=== PATIENT | male | born 1990 | race Caucasian/White ===

== ENCOUNTER 2021-06-04 15:14 | Inpatient (IN) | payer MEDICAID, SELFPAY ==
[2021-06-04] VITALS (20 sets, daily range): BP systolic 126–142; BP diastolic 72–101; PULSE 82–115; RESP 18–29; TEMP 37.8; O2SAT 97–99
[2021-06-04] MEDS: INSULIN REGULAR IN 0.9 % NACL 100 UNIT/100 ML BAG IV (15:05)
[2021-06-04] MEDS: POTASSIUM CHLORIDE/D5-0.45NACL 1,000 ML 150 MEQ IV ×2 (15:10→20:36)
[2021-06-04] MEDS: Normal Saline Flush 10 ML SYR (15:10)
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
[2021-06-04 16:06] LABS: Abs Immature Grans 0.02 10^3/uL (0.0-0.06); Absolute Basophil Count 0.03 10^3/uL (0.0-0.2); Absolute Eosinophil Count 0.08 10^3/uL (0.0-0.7); Absolute Lymphocyte Count 0.84 10^3/uL (1.2-3.4); Absolute Monocyte Count 1.34 10^3/uL (0.1-0.8); Absolute Neutrophil Count 4.19 10^3/uL (1.2-6.7); Basophils % 0.5; Eosinophils % 1.2; HCT 40.3 % (40.0-50.0); HGB 13.6 g/dL (13.5-17.5); Immature Grans % 0.3; Lymphocytes % 12.9; MCH 31.8 pg (27.0-33.0); MCHC 33.7 % (32.0-36.0); MCV 94.2 fL (80-95); MPV 9.9 fL (8.0-11.0); Monocytes % 20.6; Neutrophils % 64.5; Nucleated RBC 0 %; Platelet Count 173 10^3/uL (130-400); RBC 4.28 10^6/uL (4.36-5.78); RDW 11.6 % (11.8-14.1); RDW-SD 40.1 fL
[2021-06-04 16:10] LABS: Lactate 1.1 mmol/L (0.6-1.4)
[2021-06-04 16:23] LABS: ALT 101 U/L (16-63); AST 74 U/L (15-37); Albumin 3.9 g/dL (3.4-5.0); Alkaline Phosphatase 68 U/L (46-116); Anion Gap 15.6 mmol/L (3-11); BUN 12 mg/dL (7-18); Bilirubin, Total 1.1 mg/dL (0.2-1.0); C-Reactive Protein 0.09 mg/dL (0.0-0.3); CO2 16.4 mmol/L (21.0-32.0); CREATININE 1.1 mg/dL (0.70-1.30); Calcium 8.4 mg/dL (8.5-10.1); Chloride 96 mmol/L (98-107); Glucose 163 mg/dL (74-106); Potassium 3.6 mmol/L (3.5-5.1); Sodium 128 mmol/L (136-145); Total Protein 7.1 g/dL (6.4-8.2)
[2021-06-04 16:36] LABS: Magnesium 2.2 mg/dL (1.8-2.4); PHOSPHORUS < 2.0 mg/dL (2.6-4.7)
[2021-06-04 17:11] LABS: Procalcitonin 0.1 ng/mL
[2021-06-04] MEDS: Enoxaparin 40 MG/0.4 ML SYR SC (17:20)
[2021-06-04] MEDS: THIAMINE 100 MG in Normal Saline 100 ML 200 MG IVPB (19:27)
[2021-06-04] MEDS: Insulin Glargine 300 UNITS/3 ML PEN 25 UNITS SC (19:28)
[2021-06-04 21:02] LABS: Anion Gap 12.3 mmol/L (3-11); BUN 11 mg/dL (7-18); CO2 20.7 mmol/L (21.0-32.0); Calcium 8.5 mg/dL (8.5-10.1); Chloride 103 mmol/L (98-107); Glucose 196 mg/dL (74-106); Potassium 3.6 mmol/L (3.5-5.1); Sodium 136 mmol/L (136-145)
[2021-06-05] VITALS (14 sets, daily range): BP systolic 137–155; BP diastolic 98–108; PULSE 68–118; RESP 18–29; TEMP 37–37.4; O2SAT 94–98
[2021-06-05] MEDS: Dextrose 50%-Water 25 GM/50 ML SYR (00:41)
[2021-06-05 00:49] LABS: Anion Gap 12.2 mmol/L (3-11); BUN 9 mg/dL (7-18); CO2 23.8 mmol/L (21.0-32.0); CREATININE 0.8 mg/dL (0.70-1.30); Calcium 8.8 mg/dL (8.5-10.1); Chloride 103 mmol/L (98-107); Potassium 3.1 mmol/L (3.5-5.1); Sodium 139 mmol/L (136-145)
[2021-06-05 00:51] LABS: Glucose 65 mg/dL (74-106)
[2021-06-05] MEDS: POTASSIUM CHLORIDE 20 MEQ, POTASSIUM CHLORIDE 10 MEQ 30 MEQ PO (01:00)
[2021-06-05] MEDS: POTASSIUM CHLORIDE 20 MEQ/100 ML BAG 50 MEQ IVPB ×2 (01:51→05:10)
[2021-06-05] MEDS: Normal Saline 500 ML 50 ML IV (02:25)
[2021-06-05] MEDS: Potassium Chloride 20 MEQ TABCR 40 MEQ PO (02:59)
[2021-06-05 05:55] LABS: ALT 103 U/L (16-63); AST 132 U/L (15-37); Albumin 3.7 g/dL (3.4-5.0); Alkaline Phosphatase 66 U/L (46-116); Anion Gap 9.9 mmol/L (3-11); BUN 7 mg/dL (7-18); Bilirubin, Total 1.1 mg/dL (0.2-1.0); CO2 24.1 mmol/L (21.0-32.0); CREATININE 0.8 mg/dL (0.70-1.30); Calcium 8.4 mg/dL (8.5-10.1); Chloride 105 mmol/L (98-107); Glucose 90 mg/dL (74-106); PHOSPHORUS < 2.0 mg/dL (2.6-4.7); Potassium 3.7 mmol/L (3.5-5.1); Sodium 139 mmol/L (136-145); Total Protein 6.7 g/dL (6.4-8.2)
[2021-06-05] MEDS: POTASSIUM CHLORIDE/D5-0.45NACL 1,000 ML 150 MEQ IV (05:57)
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
[2021-06-05] MEDS: Multivitamin TAB 1 TAB PO (09:00)
[2021-06-05] MEDS: Thiamine 100 MG TAB PO (09:00)
[2021-06-05] MEDS: Normal Saline Flush 10 ML SYR IVP (09:01)
[2021-06-05] MEDS: Insulin Aspart 300 UNITS/3 ML PEN SC ×5 (09:05→17:06)
[2021-06-05 14:09] LABS: Bilirubin Negative (Negative); Blood Negative (Negative); Clarity Clear (Clear); Glucose 500 mg/dL (Negative); Ketones 40 mg/dL (Negative); Leukocyte Esterase Negative (Negative); Nitrite Negative (Negative); Urobilinogen 0.2 EU/dL (Up TO 0.2); pH 6.5 (5-8)
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
--- NOTE | 2021-06-05 15:33 | PDOC.CMDIS ---
- If Service Date Differs Date of service: 06/05/21 Time of Service: 15:33 LACE Index Scoring Tool - Questions: Length of Stay (in days): 1 Acuity (Admit via E.D.?): No Comorbidities: Diabetes w/o Complication E.D. Visits: 0 - Answers: Total Score: 2 Risk of Readmission: Low Risk Care Management Discharge Reason for Hospitalization: DKA Discharge Plan: Daryn will be discharged home with no new services. He will follow up with his community providers and transport with friends or family. Dr. Almanzar ordered a Social 2 Stepe 2 CGM with sensors for Daryn and the order was sent to his pharmacy which is [facility]. CM learned from the pharmacy that a prior authorization is required from Medicaid. This was completed and faxed and will be reviewed on Monday. Daryn was advised to vcall the pharmacy to follow up on Monday. He will also follow up with Endocrinology at [facility]. Patient/Family Education Needs: Review discharge instructions, medications, limitations, follow up plan and discuss Ask Me Three
[2021-06-05 17:17] LABS: Bilirubin Negative (Negative); Blood Negative (Negative); Clarity Clear (Clear); Glucose >=1000 mg/dL (Negative); Ketones 40 mg/dL (Negative); Leukocyte Esterase Negative (Negative); Nitrite Negative (Negative); Urobilinogen 0.2 EU/dL (Up TO 0.2)
--- NOTE | 2021-06-05 18:16 | NUR.NOTE ---
Nursing Note: Pt's own blood glucose monitor result is 229/ Results for pt's blood glucose level done with ICU glucometer is 236. Pt reassured that resukts were similar. Pt reminded to wash his hand ( thinks he had some left over food on his hand) before completing blood glucose test.
== END 2021-06-05 17:45 | disposition home or self-care (01) | DRG 638 ==
PROVIDERS: Admitting Provider Internal Medicine; PCP Internal Medicine; Visit Provider Internal Medicine
DX: E10.10 Type 1 diabetes mellitus with ketoacidosis without coma (principal); N17.9 Acute kidney failure, unspecified; E86.0 Dehydration; Z20.822 Contact with and (suspected) exposure to COVID-19; F10.10 Alcohol abuse, uncomplicated; Z98.1 Arthrodesis status; R74.01 Elevation of levels of liver transaminase levels; E87.6 Hypokalemia; E83.39 Other disorders of phosphorus metabolism
CPT/HCPCS: 36415; 80048; 80053; 84145; 86704; 86709; 86803; 87340; J1650; 81003; 83605; 83735; 84100; 85025; 86140; 99222; 99239; J3480; J3490

== ENCOUNTER 2023-01-04 11:54 | Emergency (ER) | payer MEDICAID, SELFPAY ==
[2023-01-04 11:59] VITALS: BP 121/91; PULSE 82; RESP 20; TEMP 37; O2SAT 99
--- OUTSIDE RECORDS SUMMARY | 2023-01-04 12:06 | XMS_ITS | Continuity of Care Document ---
Author Name Unknown Organization [facility] Address [address] [place] [address] Care Team Providers Care Car Salesperson Name Role Phone Renetta Baptiste Primary Care Physician Encounter [facility] Date(s): 01/01/23 - 01/01/[address] [phone] Encounter Diagnosis Fracture of ulnar styloid(Discharge Diagnosis) - 01/01/23 Discharge Disposition: Home or Self Care Attending Physician: Nino Ruggiero MD Admitting Physician: Nino Ruggiero MD Allergies, Adverse Reactions, Alerts Substance Reaction Severity Status gadolinium containing compounds 1 Moderat e Active 1Hives, Itching, Sneezing Functional Status 01/01/23 Recent Travel History No recent travel Other exposure to Infectious Disease Non e Medications atorvastatin 20 mg oral tablet 20 mg = 1 tab, Oral, Daily Start Date: 03/15/22 Status: Ordered cyclobenzaprine 10 mg oral tablet 10 mg = 1 tab, Oral, TID, PRN as needed for muscle spasm, # 15 tab, 0 Refill(s), Pharmacy: [id number], 173, cm, 06/18/22 12:23:00 EST, Height/Length Dosing, 74.84, kg, 06/18/22 12:23:00 EST, Weight Dosing Start Date: 06/18/22 Stop Date: 06/23/22 Status: Ordered FREESTYLE DOLORES 2 READER MIS FREESTYLE DOLORES 2 READER MIS, See Instructions, Use for glucose monitoring as directed Start Date: 03/15/22 Status: Ordered FREESTYLE DOLORES 2 SENSOR KIT FREESTYLE DOLORES 2 SENSOR KIT, See Instructions, Use for glucose checks with meals and at bedtime and as needed and directed Start Date: 03/15/22 Status: Ordered FREESTYLE PRECISION ROLANDO MIS FREESTYLE PRECISION ROLANDO MIS, See Instructions, Use one new test strip for each glucose testing withmeals and at bedtime as directed for Calibration Start Date: 03/15/22 Status: Ordered ibuprofen 600 mg oral tablet 600 mg = 1 tab, Oral, every 8 hr, # 30 tab, 0 Refill(s), Pharmacy: [id number], 173, cm, 06/18/22 12:23:00 EST, Height/Length Dosing, 74.84, kg, 06/18/22 12:23:00 EST, Weight Dosing Start Date: 06/18/22 Status: Ordered Lantus Solostar Pen 100 units/mL subcutaneous solution 30 units =, Subcutaneous, Daily Start Date: 03/15/22 Status: Ordered lisinopril 10 mg oral tablet 10 mg = 1 tab, Oral, Daily Start Date: 03/15/22 Status: Ordered NovoLOG FlexPen 100 units/mL injectable solution See Instructions, Inject up to 20 units subcutaneously four times daily - Max of 20 units per day Start Date: 03/15/22 Status: Ordered ONETOUCH ULTRA BLUE TEST STP ONETOUCH ULTRA BLUE TEST STP, See Instructions, Use 1 new test strip to check blood glucose 4 timesdaily Start Date: 03/15/22 Status: Ordered Virt-Phos 250 Neutral oral tablet 2 tab, Oral, QID Start Date: 03/15/22 Status: Ordered Vitamin B1 100 mg oral tablet 100 mg = 1 tab, Oral, Daily Start Date: 03/15/22 Status: Ordered Problem List Condition Confirmation Course Effective Dates Status Health [facility] Informant Pain of right wrist Confirmed Active Vital Signs Most recent to oldest [Reference Range]: 1 Temperature Temporal Artery [36-38 Deg C ] 36.3 Deg C (01/01/23 6:52 AM) Peripheral Pulse Rate [60-100 bpm] 109 b pm *HI* (01/01/23 6:52 AM) Blood Pressure [90-140/60-90 mmHg] 131/9 2mmHg (01/01/23 6:52 AM) Weight Dosing 74.80 kg (01/01/23 6:58 AM) Weight Estimated 74.80 kg (01/01/23 6:52 AM) Height/Length Dosing 173.000 cm (01/01/23 6:58 AM) Height/Length Estimated 173.000 cm (01/01/23 6:52 AM) Social History Social History Type Response Tobacco Former tobacco user Tobacco Use:. Sex Male Hospital Discharge Instructions Patient Education 01/01/2023 07:42:29 Ulnar Fracture Ulnar Fracture An ulnar fracture is a break in the ulna bone. The ulna is a bone in the forearm, on the same side as the little finger. The forearm is the part of the arm that is between the elbow and the wrist. Itis made up of two bones: the radius and the ulna. You can feel the ulna on the outside of the wristand at the point of the elbow. An ulnar fracture can happen near the wrist, near the elbow, or in the middle of the forearm. In many cases of ulnar fracture, the radius is also fractured. What are the causes? This condition is usually caused by a direct hit or stress to the forearm. This may result from: ??? An accident, such as a car or bike accident. ??? Falling with the arm outstretched. What increases the risk? You may be more likely to fracture your ulna if you: ??? Play contact sports. ??? Have a condition that causes your bones to become thin and brittle (osteoporosis). What are the signs or symptoms? Signs and symptoms may include: ??? Pain immediately after the injury. ??? An abnormal bend or bump in the arm (deformity). ??? Swelling. ??? Bruising. ??? Numbness or weakness in your hand. ??? Inability to turn your hand from side to side. How is this diagnosed? This condition may be diagnosed based on: ??? Your symptoms and medical history. ??? A physical exam. ??? An X-ray. How is this treated? Treatment depends on how severe your fracture is, where it is, and how the pieces of the broken bone line up with each other (alignment). ??? The first step in treatment may be for you to wear a temporary splint for a few days. After theswelling goes down, you may get a cast, get a different type of splint, or have surgery. ??? If your broken bone is in good alignment, you will need to wear a splint or cast for several weeks. ??? If your broken bone is not aligned (is displaced), your health care provider will need to alignthe bone pieces. After alignment, you will need to wear a splint or cast for up to 6 weeks. To align your broken bone, your health care provider may: ??? Move the bones back into position without surgery (closed reduction). ??? Perform surgery to align the fracture and fix the bone pieces into place with metal screws, plates, or wires (open reduction and internal fixation, ORIF). ??? Perform surgery to align the fracture and fix the bone pieces into place with pins that are attached to a stabilizing bar outside your skin (external fixation). Treatment may also include: ??? Having your cast changed after 2???3 weeks. ??? Physical therapy. ??? Follow-up visits and X-rays to make sure you are healing. Follow these instructions at home: If you have a splint: ??? Wear it as told by your health care provider. Remove it only as told by your health care provider. ??? Loosen the splint if your fingers tingle, become numb, or turn cold and blue. ??? Keep the splint clean and dry. If you have a cast: ??? Do not stick anything inside the cast to scratch your skin. Doing that increases your risk for infection. ??? Check the skin around the cast every day. Tell your health care provider about any concerns. ??? You may put lotion on dry skin around the edges of the cast. Do not put lotion on the skin underneath the cast. ??? Keep the cast clean and dry. Bathing ??? Do not take baths, swim, or use a hot tub until your health care provider approves. Ask your health care provider if you may take showers. You may only be allowed to take sponge baths. ??? If your splint or cast is not waterproof: ??? Do not let it get wet. ??? Cover it with a watertight covering when you take a bath or a shower. Activity ??? Do not lift anything with your injured arm. ??? Do not use the injured arm to support your body weight until your health care provider says that you can. ??? Ask your health care provider what activities are safe for you during recovery, and ask what activities you need to avoid. Managing pain, stiffness, and swelling ??? If directed, put ice on painful areas: ??? If you have a removable splint, remove it as told by your health care provider. ??? Put ice in a plastic bag. ??? Place a towel between your skin and the bag, or between your cast and the bag. ??? Leave the ice on for 20 minutes, 2???3 times a day. ??? Move your fingers often to avoid stiffness and to lessen swelling. ??? Raise (elevate) the injured area above the level of your heart while you are sitting or lying down. General instructions ??? Do not put pressure on any part of the cast or splint until it is fully hardened. This may takeseveral hours. ??? Take tkix-ujx-lxdoeax and prescription medicines only as told by your health care provider. ??? Do not drive until your health care provider approves. You should not drive or use heavy machinery while taking prescription pain medicine. ??? Do not use any products that contain nicotine or tobacco, such as cigarettes and e-cigarettes. These can delay bone healing. If you need help quitting, ask your health care provider. ??? Keep all follow-up visits as told by your health care provider. This is important. Contact a health care provider if you have: ??? Pain that does not get better with medicine. ??? Swelling that gets worse. ??? A bad smell coming from your cast. Get help right away if: ??? You cannot move your fingers. ??? You have severe pain. ??? Your fingers or your hand: ??? Become numb, cold, or pale. ??? Turn a bluish color. Summary ??? An ulnar fracture is a break in the ulna bone, which is the bone in your forearm that is on thesame side as your little finger. ??? You may need to wear a splint or a cast for at least several weeks. Sometimes surgery is needed. ??? Keep all follow-up visits as told by your health care provider. This information is not intended to replace advice given to you by your health care provider. Make sure you discuss any questions you have with your health care provider. Document Revised: 08/11/2021 Document Reviewed: 08/11/2021 [employer] Patient Education ?? 2021 [employer]. 01/01/2023 07:42:25 Cast or Splint Care, Adult Cast or Splint Care, Adult Casts and splints are supports that are worn to protect broken bones and other injuries. A cast or splint may hold a bone still and in the correct position while it heals. Casts and splints may also help to ease pain, swelling, and muscle spasms. A cast is a hardened support that is usually made of fiberglass or plaster. It is custom-fit to thebody and offers more protection than a splint. Most casts cannot be taken off and put back on. A splint is a type of soft support that is usually made from cloth and elastic. It can be adjusted or taken off as needed. Often when a bone is broken, a splint is put on until the swelling goes down, andthen the splint is replaced by a cast. You may need a cast or a splint if you: ??? Have a broken bone. ??? Have a soft-tissue injury. ??? Need to keep an injured body part from moving (keep it immobile) after surgery. What are the risks? In some cases, wearing a cast or splint can cause a reduced blood supply to the wrist or hand or tothe foot and toes. This can happen if there is a lot of swelling or if the cast or splint is too tight. Limited blood supply results in a condition called compartment syndrome and can cause permanentdamage. Symptoms include: ??? Pain that is getting worse. ??? Numbness and tingling. ??? Changes in skin color, including paleness or a bluish color. ??? Cold fingers or toes. Other complications of wearing a cast or splint can include: ??? Skin irritation that can cause itching, rash, skin sores, or skin infection. ??? Limb stiffness or weakness. How to care for a cast ??? Check the skin around it every day. Tell your health care provider about any concerns. ??? Do not stick anything inside it to scratch your skin. Doing that increases your risk of infection. ??? You may put lotion on dry skin around the edges of the cast. Do not put lotion on the skin underneath it. ??? Keep it clean and dry. How to care for a splint ??? Wear it as told by your health care provider. Remove it only as told by your health care provider. ??? Check the skin around it every day. Tell your health care provider about any concerns. ??? Loosen it if your fingers or toes tingle, become numb, or turn cold and blue. ??? Keep it clean and dry. Clean your splint as told by your health care provider. Use mild soap and water and let it air-dry. Do not use heat on your splint. Follow these instructions at home: Bathing ??? Do not take baths, swim, or use a hot tub until your health care provider approves. Ask your health care provider if you may take showers. You may only be allowed to take sponge baths. ??? If the cast or splint is not waterproof: ??? Do not let it get wet. ??? Cover it with a watertight covering when you take a bath or shower. Managing pain, stiffness, and swelling ??? If directed, put ice on the affected area. To do this: ??? If you have a removable cast or splint, remove it as told by your health care provider. ??? Put ice in a plastic bag. ??? Place a towel between your skin and the bag or between your cast and the bag. ??? Leave the ice on for 20 minutes, 2???3 times a day. ??? Move your fingers or toes often to reduce stiffness and swelling. ??? Raise (elevate) the injured area above the level of your heart while you are sitting or lying down. Safety ??? Do not use the injured limb to support your body weight until your health care provider says that you can. Use crutches or other assistive devices as told by your health care provider. ??? Ask your health care provider when it is safe to drive if you have a cast or splint on part of your body. General instructions ??? Do not put pressure on any part of the cast or splint until it is fully hardened. This may takeseveral hours. ??? Take pjnt-ajg-fzlovkb and prescription medicines only as told by your health care provider. ??? Do not use any products that contain nicotine or tobacco, such as cigarettes, e-cigarettes, andchewing tobacco. These can delay healing. If you need help quitting, ask your health care provider. ??? Return to your normal activities as told by your health care provider. Ask your health care provider what activities are safe for you. ??? Keep all follow-up visits as told by your health care provider. This is important. Contact a health care provider if: ??? The skin around the cast or splint gets red or raw. ??? The skin under the cast is extremely itchy or painful. ??? Your cast or splint: ??? Gets damaged. ??? Feels very uncomfortable. ??? Is too tight or too loose. ??? Your cast becomes wet or develops a soft spot or area. ??? You notice a bad smell coming from under your cast. ??? You get an object stuck under your cast. Get help right away if: ??? You develop any symptoms of compartment syndrome, such as: ??? Severe pain or pressure under the cast. ??? Numbness, tingling, coldness, or pale or bluish skin. ??? The part of your body above or below the cast is swollen and discolored. ??? You cannot feel or move your fingers or toes. ??? Your pain is getting worse. ??? There is fluid leaking through the cast. ??? You have trouble breathing or shortness of breath. ??? You have chest pain. Summary ??? Casts and splints are worn to protect broken bones and other injuries. ??? Most casts are not removable, and splints are removable. ??? Casts and splints should remain clean and dry. ??? Remove your cast or splint only as told by your health care provider. ??? Get help right away if your pain gets worse, or if you have numbness, tingling, or skin that turns cold, blue, or discolored. This information is not intended to replace advice given to you by your health care provider. Make sure you discuss any questions you have with your health care provider. Document Revised: 08/12/2020 Document Reviewed: 03/05/2020 [employer] Patient Education ?? 2021 [employer]. Follow Up Care 01/01/2023 06:51:56 With:Jose Delgado MD Address: [facility] [address] [place] [phone] When:2 to 4 days Physician Emergency department Note * Peggy Pelletier MD: PERFORM Event Display: ED Note Physician Authored Date: [id number] EDWIN PHILIP :1990 Age:32 years Sex:Male Visit Date:01/01/2023 Primary Care Physician: Renetta Batpiste MD Basic Information Time Seen: Peggy Pelletier MD / 01/01/2023 07:18 Chief Complaint Fell last night while intoxicated onto right wrist, pain and swelling. Did not take any pain meds this morning History Of Present Illness: This is a??32 year old [id number]??male??who presents to the ED c/o right wrist pain.?The patient says he??was intoxicated with alcohol yesterday??and he fell on his right??outstretched hand.?? He did not hit his head and had no LOC. Pain is located over the ulnar portion??of the dorsum of the right wrist Worsening factors include moving the wrist Pain is improved with rest The patient denies numbness/tingling or weakness of the extremity No fever/chills, no n/v/c/d.? Physical exam: ?? General: A&Ox3, Calm, no apparent distress, well developed, pleasant and cooperative ?? HEENT: Head ATNC. Eyes: MABLE. Extraocular Mobility: intact and symmetrical. Conjunctiva: non-injected, anicteric, no discharge.? Extremities: Right wrist with no deformity, no bruising, no cyanosis, no opening in the skin, there is ttp over the ulnar part of the dorsal??wrist, ROM is full at the wrist. Strength 5/5, sensation intact, 2+ radial pulse ?? Neuro: normal tone, normal strength in all 3 other extremities, sensation intact ? MDM Thorough chart review performed Nursing triage note reviewed Triage vitals reviewed Pt well and non toxic appearing?? Presentation concerning for contusion/sprain, will r/o frx ?? Plan: Analgesia, XR ?? XR shows new fracture of the styloid where there appears to already by non union from a prior fracture (my read, final read not available when pt requested d/c to go to work) ?? The patient was given??tylenol with improvement in pain Pt placed in sugar tongue splint Plan to continue Tylenol and Ibuprofen as an outpatient f/u ortho Discharge instructions and return precautions discussed, all questions answered. Physical Exam Vitals & Measurements T:??36.3?C ??(Temporal Artery)?? HR:??109??(Peripheral)?? BP:??131/92?? SpO2:??98%?? HT:??173.000??cm?? WT:??74.80??kg??(Estimated)?? Pain Score:??8?? O2 Therapy:??Room air?? Procedure Emergency Department Splint Procedure Note Injury: _ulnar styloid frx Splint material: _ortho glass Splint type: _sugar tongue Splint location: _RUE Applied by: _self Splint was placed to ensure immobilization and adequate pain control. Adequate gauze padding was placed and the splint was secured with LAQUITA Bandage. The patient tolerated the procedure well and was neurovascularly intact distally after splinting. No Qualifying Data Assessment/Plan 1.??Fracture of ulnar styloid??S52.613A Ordered: Discharge Patient, 01/01/23 8:42:00 EDT, Constant Indicator ?? Patient Education Ulnar Fracture Cast or Splint Care, Adult Follow Up With When Contact Information Jose Delgado MD Within 2 to 4 days [facility] [address] [place] [phone] Additional Instructions: Medication Reconciliation Unchanged atorvastatin (atorvastatin 20 mg oral tablet)1 tab Oral (given by mouth) every day. ?? cyclobenzaprine (cyclobenzaprine 10 mg oral tablet)1 tab Oral (given by mouth) 3 times a day as needed as needed for muscle spasm for 5 Days. Refills: 0. ?? ibuprofen (ibuprofen 600 mg oral tablet)1 tab Oral (given by mouth) every 8 hours. Refills: 0. ?? insulin aspart (NovoLOG FlexPen 100 units/mL injectable solution)Inject up to 20 units subcutaneously four times daily - Max of 20 units per day. ?? insulin glargine (Lantus Solostar Pen 100 units/mL subcutaneous solution)30 Units Subcutaneous (under the skin) every day. ?? lisinopril (lisinopril 10 mg oral tablet)1 tab Oral (given by mouth) every day. ?? Other Prescription (FREESTYLE DOLORES 2 READER MIS)Use for glucose monitoring as directed. ?? Other Prescription (FREESTYLE DOLORES 2 SENSOR KIT)Use for glucose checks with meals and at bedtime and as needed and directed. ?? Other Prescription (FREESTYLE PRECISION ROLANDO MIS)Use one new test strip for each glucose testing with meals and at bedtime as directed for Calibration. ?? Other Prescription (gAutoUCH ULTRA BLUE TEST STP)Use 1 new test strip to check blood glucose 4 times daily. ?? potassium phosphate-sodium phosphate (Virt-Phos 250 Neutral oral tablet)2 tab Oral (given by mouth)4 times a day. ?? thiamine (Vitamin B1 100 mg oral tablet)1 tab Oral (given by mouth) every day. Problem List/Past Medical History Ongoing Pain of right wrist Historical No qualifying data Medication Administration Given acetaminophen, 650 mg, Oral Allergies gadolinium containing compounds Social History Alcohol Current Electronic Cigarette/Vaping Electronic Cigarette Use: Never. Substance Use Current, Marijuana, Daily Tobacco Former tobacco user Tobacco Use:. Electronically Signed on 01/01/23 09:14 AM Peggy Pelletier MD Emergency department Discharge instructions * Peggy Pelletier MD: PERFORM Event Display: ED Discharge Information Authored Date: [id number] EDWIN PHILIP :1990 Age:32 years Sex:Male Visit Date:01/01/2023 Primary Care Physician: Renetta Baptiste MD Discharge Instructions We would like to thank you for allowing us to assist you with your healthcare needs. The following includes patient education materials and information regarding your injury/illness. Diagnosis from Today's Visit Fracture of ulnar styloid Discharge Vitals Temperature??(Temporal Artery) 97.3 ??F (36.3 ??C) Heart Rate??(Peripheral) 109 Blood Pressure?? 131/92?? Height?? 68.11 in (173.000 cm) Weight??(Estimated) 164.93 lb (74.80 kg) Allergies gadolinium containing compounds What to Do Next Instructions from Your Care Team Please keep splint??on, clean, dry and intact at all times.?? Follow-up with orthopedic surgery??next week.?? Please give them a call tomorrow and they will give you an appointment.?? Return to the emergency department for any new or worsening symptoms. You Need to Schedule the Following Appointments Follow Up with??Jose Delgado MD When:??Within 2 to 4 days Where: [facility] [address] [place] [phone] You were treated today on an emergency basis; it may be garcia to contact your primary care provider to notify them of your visit today. You may have been referred to your regular doctor or a specialist, please follow up as instructed. If your condition worsens or you can't get in to see the doctor, contact the Emergency Department. Medications What How Much When Why Instructions Next Dose Unchanged atorvastatin (atorvastatin 20 mg oral tablet) 1 tab Oral (given by mouth) Every day Unchanged cyclobenzaprine (cyclobenzaprine 10 mg oral tablet) 1 tab Oral (given by mouth) 3 times a day as needed for as needed for muscle spasm Neck muscle spasm Duration: 5 Days Unchanged ibuprofen (ibuprofen 600 mg oral tablet) 1 tab Oral (given by mouth) Every 8 hours Neck muscle spasm Unchanged insulin aspart (NovoLOG FlexPen 100 units/ mL injectable solution) See instructions Inject up to 20 units subcutaneously four times daily - Max of 20 units per day ?? Unchanged insulin glargine (Lantus Solostar Pen 100 units/ mL subcutaneous solution) 30 Units Subcutaneous (under the skin) Every day Unchanged lisinopril (lisinopril 10 mg oral tablet) 1 tab Oral (given by mouth) Every day Unchanged Other Prescription (FREESTYLE DOLORES 2 READER MIS) See instructions Use for glucose monitoring as directed ?? Unchanged Other Prescription (FREESTYLE DOLORES 2 SENSOR KIT) See instructions Use for glucose checks with meals and at bedtime and as needed and directed ?? Unchanged Other Prescription (FREESTYLE PRECISION ROLANDO MIS) See instructions Use one new test strip for each glucose testing with meals and at bedtime as directed for Calibration ?? Unchanged Other Prescription (ONETOUCH ULTRA BLUE TEST STP) See instructions Use 1 new test strip to check blood glucose 4 times daily ?? Unchanged potassium phosphate-sodium phosphate (Virt-Phos 250 Neutral oral tablet) 2 tab Oral (given by mouth) 4 times a day Unchanged thiamine (Vitamin B1 100 mg oral tablet) 1 tab Oral (given by mouth) Every day Education Materials Ulnar Fracture An ulnar fracture is a break in the ulna bone. The ulna is a bone in the forearm, on the same side as the little finger. The forearm is the part of the arm that is between the elbow and the wrist. Itis made up of two bones: the radius and the ulna. You can feel the ulna on the outside of the wristand at the point of the elbow. An ulnar fracture can happen near the wrist, near the elbow, or in the middle of the forearm. In many cases of ulnar fracture, the radius is also fractured. What are the causes? This condition is usually caused by a direct hit or stress to the forearm. This may result from: ? An accident, such as a car or bike accident. ? Falling with the arm outstretched. What increases the risk? You may be more likely to fracture your ulna if you: ? Play contact sports. ? Have a condition that causes your bones to become thin and brittle (osteoporosis). What are the signs or symptoms? Signs and symptoms may include: ? Pain immediately after the injury. ? An abnormal bend or bump in the arm (deformity). ? Swelling. ? Bruising. ? Numbness or weakness in your hand. ? Inability to turn your hand from side to side. How is this diagnosed? This condition may be diagnosed based on: ? Your symptoms and medical history. ? A physical exam. ? An X-ray. How is this treated? Treatment depends on how severe your fracture is, where it is, and how the pieces of the broken bone line up with each other (alignment). ? The first step in treatment may be for you to wear a temporary splint for a few days. After the swelling goes down, you may get a cast, get a different type of splint, or have surgery. ? If your broken bone is in good alignment, you will need to wear a splint or cast for several weeks. ? If your broken bone is not aligned (is displaced), your health care provider will need to align thebone pieces. After alignment, you will need to wear a splint or cast for up to 6 weeks. To align your broken bone, your health care provider may: ? Move the bones back into position without surgery (closed reduction). ? Perform surgery to align the fracture and fix the bone pieces into place with metal screws, plates,or wires (open reduction and internal fixation, ORIF). ? Perform surgery to align the fracture and fix the bone pieces into place with pins that are attached to a stabilizing bar outside your skin (external fixation). Treatment may also include: ? Having your cast changed after 2???3 weeks. ? Physical therapy. ? Follow-up visits and X-rays to make sure you are healing. Follow these instructions at home: If you have a splint: ? Wear it as told by your health care provider. Remove it only as told by your health care provider. ? Loosen the splint if your fingers tingle, become numb, or turn cold and blue. ? Keep the splint clean and dry. If you have a cast: ? Do not stick anything inside the cast to scratch your skin. Doing that increases your risk for infection. ? Check the skin around the cast every day. Tell your health care provider about any concerns. ? You may put lotion on dry skin around the edges of the cast. Do not put lotion on the skin underneath the cast. ? Keep the cast clean and dry. Bathing ? Do not take baths, swim, or use a hot tub until your health care provider approves. Ask your healthcare provider if you may take showers. You may only be allowed to take sponge baths. ? If your splint or cast is not waterproof: ? Do not let it get wet. ? Cover it with a watertight covering when you take a bath or a shower. Activity ? Do not lift anything with your injured arm. ? Do not use the injured arm to support your body weight until your health care provider says that you can. ? Ask your health care provider what activities are safe for you during recovery, and ask what activities you need to avoid. Managing pain, stiffness, and swelling ? If directed, put ice on painful areas: ? If you have a removable splint, remove it as told by your health care provider. ? Put ice in a plastic bag. ? Place a towel between your skin and the bag, or between your cast and the bag. ? Leave the ice on for 20 minutes, 2???3 times a day. ? Move your fingers often to avoid stiffness and to lessen swelling. ? Raise (elevate) the injured area above the level of your heart while you are sitting or lying down. General instructions ? Do not put pressure on any part of the cast or splint until it is fully hardened. This may take several hours. ? Take fwgd-chl-qizcutx and prescription medicines only as told by your health care provider. ? Do not drive until your health care provider approves. You should not drive or use heavy machinery while taking prescription pain medicine. ? Do not use any products that contain nicotine or tobacco, such as cigarettes and e-cigarettes. These can delay bone healing. If you need help quitting, ask your health care provider. ? Keep all follow-up visits as told by your health care provider. This is important. Contact a health care provider if you have: ? Pain that does not get better with medicine. ? Swelling that gets worse. ? A bad smell coming from your cast. Get help right away if: ? You cannot move your fingers. ? You have severe pain. ? Your fingers or your hand: ? Become numb, cold, or pale. ? Turn a bluish color. Summary ? An ulnar fracture is a break in the ulna bone, which is the bone in your forearm that is on the same side as your little finger. ? You may need to wear a splint or a cast for at least several weeks. Sometimes surgery is needed. ? Keep all follow-up visits as told by your health care provider. This information is not intended to replace advice given to you by your health care provider. Make sure you discuss any questions you have with your health care provider. Document Revised: 08/11/2021 Document Reviewed: 08/11/2021 [employer] Patient Education ?? 2021 [employer]. Cast or Splint Care, Adult Casts and splints are supports that are worn to protect broken bones and other injuries. A cast or splint may hold a bone still and in the correct position while it heals. Casts and splints may also help to ease pain, swelling, and muscle spasms. A cast is a hardened support that is usually made of fiberglass or plaster. It is custom-fit to thebody and offers more protection than a splint. Most casts cannot be taken off and put back on. A splint is a type of soft support that is usually made from cloth and elastic. It can be adjusted or taken off as needed. Often when a bone is broken, a splint is put on until the swelling goes down, andthen the splint is replaced by a cast. You may need a cast or a splint if you: ? Have a broken bone. ? Have a soft-tissue injury. ? Need to keep an injured body part from moving (keep it immobile) after surgery. What are the risks? In some cases, wearing a cast or splint can cause a reduced blood supply to the wrist or hand or tothe foot and toes. This can happen if there is a lot of swelling or if the cast or splint is too tight. Limited blood supply results in a condition called compartment syndrome and can cause permanentdamage. Symptoms include: ? Pain that is getting worse. ? Numbness and tingling. ? Changes in skin color, including paleness or a bluish color. ? Cold fingers or toes. Other complications of wearing a cast or splint can include: ? Skin irritation that can cause itching, rash, skin sores, or skin infection. ? Limb stiffness or weakness. How to care for a cast ? Check the skin around it every day. Tell your health care provider about any concerns. ? Do not stick anything inside it to scratch your skin. Doing that increases your risk of infection. ? You may put lotion on dry skin around the edges of the cast. Do not put lotion on the skin underneath it. ? Keep it clean and dry. How to care for a splint ? Wear it as told by your health care provider. Remove it only as told by your health care provider. ? Check the skin around it every day. Tell your health care provider about any concerns. ? Loosen it if your fingers or toes tingle, become numb, or turn cold and blue. ? Keep it clean and dry. Clean your splint as told by your health care provider. Use mild soap and water and let it air-dry. Do not use heat on your splint. Follow these instructions at home: Bathing ? Do not take baths, swim, or use a hot tub until your health care provider approves. Ask your healthcare provider if you may take showers. You may only be allowed to take sponge baths. ? If the cast or splint is not waterproof: ? Do not let it get wet. ? Cover it with a watertight covering when you take a bath or shower. Managing pain, stiffness, and swelling ? If directed, put ice on the affected area. To do this: ? If you have a removable cast or splint, remove it as told by your health care provider. ? Put ice in a plastic bag. ? Place a towel between your skin and the bag or between your cast and the bag. ? Leave the ice on for 20 minutes, 2???3 times a day. ? Move your fingers or toes often to reduce stiffness and swelling. ? Raise (elevate) the injured area above the level of your heart while you are sitting or lying down. Safety ? Do not use the injured limb to support your body weight until your health care provider says that you can. Use crutches or other assistive devices as told by your health care provider. ? Ask your health care provider when it is safe to drive if you have a cast or splint on part of yourbody. General instructions ? Do not put pressure on any part of the cast or splint until it is fully hardened. This may take several hours. ? Take edxk-lxi-fztqcnn and prescription medicines only as told by your health care provider. ? Do not use any products that contain nicotine or tobacco, such as cigarettes, e- cigarettes, and chewing tobacco. These can delay healing. If you need help quitting, ask your health care provider. ? Return to your normal activities as told by your health care provider. Ask your health care provider what activities are safe for you. ? Keep all follow-up visits as told by your health care provider. This is important. Contact a health care provider if: ? The skin around the cast or splint gets red or raw. ? The skin under the cast is extremely itchy or painful. ? Your cast or splint: ? Gets damaged. ? Feels very uncomfortable. ? Is too tight or too loose. ? Your cast becomes wet or develops a soft spot or area. ? You notice a bad smell coming from under your cast. ? You get an object stuck under your cast. Get help right away if: ? You develop any symptoms of compartment syndrome, such as: ? Severe pain or pressure under the cast. ? Numbness, tingling, coldness, or pale or bluish skin. ? The part of your body above or below the cast is swollen and discolored. ? You cannot feel or move your fingers or toes. ? Your pain is getting worse. ? There is fluid leaking through the cast. ? You have trouble breathing or shortness of breath. ? You have chest pain. Summary ? Casts and splints are worn to protect broken bones and other injuries. ? Most casts are not removable, and splints are removable. ? Casts and splints should remain clean and dry. ? Remove your cast or splint only as told by your health care provider. ? Get help right away if your pain gets worse, or if you have numbness, tingling, or skin that turns cold, blue, or discolored. This information is not intended to replace advice given to you by your health care provider. Make sure you discuss any questions you have with your health care provider. Document Revised: 08/12/2020 Document Reviewed: 03/05/2020 [employer] Patient Education ?? 2021 [employer] Tests Performed Medications and Immunizations Administered Given acetaminophen, 650 mg, Oral Patient/Master Dyer Signature Patient Name:EDWIN PHILIP I have received this information and my questions have been answered. Patient/Master Dyer Name: Patient/Master Dyer Signature: Relationship to Patient: Witness Name/Signature: Date: Electronically Signed on: 01/01/2023 08:43 EDTSigned by:[facility] Emergency department Note * Ruth Ann Marcial: PERFORM Event Display: ED Notes Authored Date: [id number] Patient Care team information Care Team Personnel Name: Renetta Baptiste MD Position: PowerChart View Only Member Role: Informed Provider Address: Address: [place] [id number] Name: Peggy Pelletier MD Position: Physician Member Role: ED Physician Address: Address: [address] [place] [id number] [place] Name: Olga Alas Position: Nurse Member Role: ED Nurse Care Team Related Persons Name: ROSALIA PHILIP Name: STEPHANIE CERDA Address: Home [address], [place] [id number]
--- OUTSIDE RECORDS SUMMARY | 2023-01-04 12:06 | XMS_ITS | Continuity of Care Document ---
Author Name Unknown Organization [facility] Address [address] [place] [address] Care Team Providers Care Primary Montessori Teacher Name Role Phone Renetta Baptiste Primary Care Physician Encounter [facility] Date(s): 04/19/22 - 04/19/[address] [address] Discharge Disposition: Home or Self Care Attending Physician: Renetta Baptiste MD Admitting Physician: Renetta Baptiste MD Allergies, Adverse Reactions, Alerts Substance Reaction Severity Status gadolinium containing compounds 1 Moderat e Active 1Hives, Itching, Sneezing Medications atorvastatin 20 mg oral tablet 20 mg = 1 tab, Oral, Daily Start Date: 03/15/22 Status: Ordered FREESTYLE DOLORES 2 READER MIS [...] for Calibration Start Date: 03/15/22 Status: Ordered Lantus Solostar Pen 100 units/mL [...] Informant Pain of right wrist Confirmed Active Results Laboratory List Name Date CBC w/ Diff 04/19/22 PTT 04/19/22 Automated Diff 04/19/22 Most recent to oldest [Reference Range]: 1 WBC [5.0-10.0 x10^3/mcL] 5.6 x10^3/mcL (04/19/22 5:20 PM) RBC [4.6-6.0 x10^6/mcL] 4.5 x10^6/mcL *LOW* (04/19/22 5:20 PM) Neutro Auto [40.0-75.0 %] 58.3 % (04/19/22 5:20 PM) Lymph Auto [20.0-50.0 %] 23.3 % (04/19/22 5:20 PM) [place] Auto [2.0-15.0 %] 11.5 % (04/19/22 5:20 PM) Basophil Auto [0.0-1.0 %] 1.2 % *HI* (04/19/22 5:20 PM) MCV [80.0-103.0 fL] 91.6 fL (04/19/22 5:20 PM) MCHC [31.0-35.0 g/dL] 34.8 g/dL (04/19/22 5:20 PM) Hct [41.0-51.0 %] 41.4 % (04/19/22 5:20 PM) Partial Thromboplastin Time [22-35 secon ds] 25 seconds (04/19/22 5:20 PM) MCH [26.0-32.0 pg] 31.9 pg (04/19/22 5:20 PM) Neutro Absolute 3.3 x10^3/mcL *NA* (04/19/22 5:20 PM) Hgb [14.0-18.0 g/dL] 14.4 g/dL (04/19/22 5:20 PM) Platelets [130-450 x10^3/mcL] 238 x10^3/ mcL (04/19/22 5:20 PM) RDW-CV [11.5-17.0 %] 12.1 % (04/19/22 5:20 PM) Imm Gran Auto [0.0-0.9 %] 0.4 % (04/19/22 5:20 PM) Eos, Auto [1.0-6.0 %] 5.3 % (04/19/22 5:20 PM) Social History Social History Type Response Sex Male Patient Care team information Personnel Name: Renetta Baptiste MD Address: Address: [address] [address] [place]
--- OUTSIDE RECORDS SUMMARY | 2023-01-04 12:06 | XMS_ITS | Continuity of Care Document ---
Author Name Unknown Organization [facility] Address [address] [place] [address] Care Team Providers Care Corporate Development Intern Name Role Phone Renetta Baptiste Primary Care Physician Encounter [facility] Date(s): 10/07/22 - 10/07/[address] [address] Discharge Disposition: Home or Self Care Attending Physician: Renetta Baptiste MD Admitting Physician: Renetta Baptiste MD Referring Physician: Renetta Baptiste MD Allergies, Adverse Reactions, Alerts Substance Reaction Severity Status gadolinium containing compounds 1 Moderat e Active 1Hives, Itching, Sneezing Assessment and Plan Diagnostic Tests Pending * Lyme Antibody UV 10/07/22 * Rheumatoid Factor UV 10/07/22 * Anti Nuclear Ab (MAITE), IFA UV 10/07/22 Medications atorvastatin 20 mg oral tablet 20 mg = 1 tab, Oral, Daily Start Date: 03/15/22 Status: Ordered cyclobenzaprine 10 mg oral tablet 10 mg = 1 tab, Oral, TID, PRN as needed for muscle spasm, # 15 tab, 0 Refill(s), Pharmacy: [id number], 173, cm, 06/18/22 12:23:00 EST, [...] hr, # 30 tab, 0 Refill(s), Pharmacy: [id number], 173, cm, 06/18/22 12:23:00 EST, [...] Confirmed Active Results Laboratory List Name Date C-Reactive Protein High Sensitivity Hemoglobin A1c 10/07/22 Most recent to oldest [Reference Range]: 1 Hemoglobin A1c [4.0-6.0 %] 5.7 % (10/07/22 9:25 AM) CRP High Sens [0.00-3.00 mg/L] 1.44 mg/L (10/07/22 9:25 AM) Social History Social History Type Response Tobacco Never tobacco user T obacco Use:. Sex Male Patient Care team information Care Team Personnel Name: Renetta Baptiste MD Position: PowerChart View Only Member Role: Informed Provider Address: Address: [facility] [address] [place] [address]- Care Team Related Persons Name: STEPHANIE CERDA Address: Home [address] [place] [address] [place]
--- OUTSIDE RECORDS SUMMARY | 2023-01-04 12:06 | XMS_ITS | Continuity of Care Document ---
Author Name Unknown Organization [facility] Address [address] [place] [address] Care Team Providers Care Instructor Looping Name Role Phone Renetta Baptiste Primary Care Physician Encounter [facility] Date(s): 03/30/22 - 03/30/[address] [address] Encounter Diagnosis Hepatomegaly, not elsewhere classified(Final) - Discharge Disposition: Home or Self Care Attending [...] Date: 03/15/22 Status: Ordered Problem List Condition Effective Dates Status Health Status Inform ant Pain of right wrist(Confirmed) Active Social History Social History Type Response Sex Male Patient Care team information Personnel Name: Renetta Baptiste MD Address: Address: [address] [address]- [place]
--- OUTSIDE RECORDS SUMMARY | 2023-01-04 12:06 | XMS_ITS | Continuity of Care Document ---
Author Name Unknown Organization [facility] Address [address] [place] [address] Care Team Providers Care Brass Plater Name Role Phone Renetta Baptiste Primary Care Physician Encounter [facility] Date(s): 04/20/22 - 04/20/[address] [address] Discharge Disposition: Home or Self Care Attending [...] Confirmed Active Results Laboratory List Name Date PT/ INR 04/20/22 Most recent to oldest [Reference Range]: 1 Prothrombin Time [9.0-11.0 seconds] 10.5 seconds (04/20/22 1:48 PM) INR 1.0 *NA* (04/20/22 1:48 PM) Vital Signs Most recent to oldest [Reference Range]: 1 Temperature Temporal Artery [36-38 Deg C ] 35.9 Deg C *LOW* (04/20/22 1:39 PM) Peripheral Pulse Rate [60-100 bpm] 88 bp m (04/20/22 1:39 PM) Respiratory Rate [12-24 br/min] 16 br/mi n (04/20/22 1:39 PM) Blood Pressure [90-140/60-90 mmHg] 139/1 00mmHg (04/20/22 1:39 PM) Mean Arterial Pressure Cuff 112 mmHg (04/20/22 1:39 PM) Blood Pressure Location Left arm (04/20/22 1:39 PM) Blood Pressure Method Automatic (04/20/22 1:39 PM) Social History Social History Type Response Sex Male Patient Care team information Personnel Name: Renetta Baptiste MD Address: Address: [id number] [place] [address]
--- NOTE | 2023-01-04 12:23 | DI.RAD_ITS ---
Exam(s) XR WRIST RT COMPLETE EXAM: XR WRIST RT COMPLETE CLINICAL HISTORY: rigth wrist fracture. TECHNIQUE: 2D digital imaging was performed. Three views. COMPARISON: No exams were available for comparison FINDINGS: BONES: Bony densities are noted near the radial styloid could represent acute and/or old fracture fra gments. No bony destructive lesion is seen. JOINTS: The carpal bones are normally aligned. Degenerative changes radial carpal joint. SOFT TISSUE: Swelling around ulnar styloid. IMPRESSION: Question of acute versus chronic ulnar styloid fracture. DATA REPOSITORY: RADIATION DOSE DELIVERED:
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
== END 2023-01-04 13:47 | disposition home or self-care (01) ==
PROVIDERS: Emergency Provider Physician Assistant; PCP Internal Medicine
DX: S52.611A Displaced fracture of right ulna styloid process, initial encounter for closed fracture (principal); X58.XXXA Exposure to other specified factors, initial encounter; R20.2 Paresthesia of skin
CPT/HCPCS: 99283; 73110